=== PATIENT | female | born 1945 | race Caucasian/White ===

== ENCOUNTER 2020-05-12 07:44 | Outpatient (CLI) | payer MEDICARE, MEDICAID, SELFPAY ==
--- NOTE | ~2020-05-12 | DEXA_ITS ---
Bone Density Report Name: Sandy Mendez Age: 74 Sex: Female Ethnicity: White Date of : 1945 Indication: osteopenia; height loss; postmenopausal Referring Provider: Kathy Rogers Study: Bone densitometry was performed. Exam Date: May 12, 2020 Accession number: [id number] Bone Density: Region BMD T-score Z-score Classification AP Spine (L1-L4) 1.097 0.5 2.9 Normal Femoral Neck (Left) 0.613 -2.1 0.0 Osteopenia Total Hip (Left) 0.741 -1.6 0.2 Osteopenia Total Hip Bilateral Avg 0.776 -1.4 0.5 Osteopenia Femoral Neck (Right) 0.604 -2.2 -0.1 Osteopenia Total Hip (Right) 0.811 -1.1 0.8 Osteopenia World Health Organization criteria for BMD impression classify patients as: Normal (T-score at or above -1.0), Osteopenia (T-score between -1.0 and -2.5), or Osteoporosis (T-score at or below -2.5). 10-year Fracture Risk(1): Major Osteoporotic Fracture 13% Hip Fracture 3.3% Reported Risk Factors: [place] (), Neck BMD=0.604, BMI=43.3 (1) FRAX(R) Version 3.08. Fracture probability calculated for an untreated patient. Fracture probability may be lower if the patient has received treatment. Previous Exams: Region Exam Age BMD T-score BMD Change BMD Change Date g/cm2 vs Baseline vs Previous AP Spine(L1-L4) 05/12/2020 74 1.097 0.5 0.140(14.7%)# 0.020(1.8%) 08/24/2016 70 1.078 0.3 0.121(12.6%)# 0.121(12.6%)# 01/12/2009 63 0.957 -0.8 Total Hip(Left) 05/12/2020 74 0.741 -1.6 -0.059(-7.3%)# 0.060(8.9%)* 08/24/2016 70 0.681 -2.1 -0.119(-14.9%) -0.119(-14.9%) 01/12/2009 63 0.800 -1.2 Total Hip(Right) 05/12/2020 74 0.811 -1.1 0.027(3.4%)# 0.049(6.5%)* 08/24/2016 70 0.762 -1.5 -0.022(-2.9%)# -0.022(-2.9%)# 01/12/2009 63 0.784 -1.3 *Denotes significance at 95% confidence level, LSC for AP Spine = 0.022 g/cm2, LSC for Total Hip = 0.027 g/cm2 Clinical Information Provided by Patient: Has used the following medications: Fosamax (i.e. alendronate), Vitamin D, Calcium Patient maximum height was 62.5 Menopause Age: 3 Drinks caffeinated beverages Onset of menses at age 10 Number of children 5 Impression: The patient has low bone mass, based on the Right Femoral Neck T-score. The patient has an estimated ten-year risk of hip fracture of 3.3% and an estimated ten-year risk of major fracture of 13%, based on the WHO FRAX algorithm. No significant bone loss was observed. Varsha
== END 2020-05-12 07:45 | disposition home or self-care (01) ==
PROVIDERS: PCP Family Medicine; Visit Provider Family Medicine
DX: M81.0 Age-related osteoporosis without current pathological fracture (principal); M85.852 Other specified disorders of bone density and structure, left thigh; M85.851 Other specified disorders of bone density and structure, right thigh
CPT/HCPCS: 77080

== ENCOUNTER 2020-06-13 00:41 | Outpatient (CLI) | payer MEDICARE, MEDICAID, SELFPAY ==
[2020-06-13 19:29] LABS: SARS-CoV-2 RNA PCR Negative
== END 2020-06-13 00:42 | disposition home or self-care (01) ==
LOC: ANHCOVIDDT 00:41
PROVIDERS: PCP Family Medicine; Visit Provider Internal Medicine Gastroenterology
DX: Z01.812 Encounter for preprocedural laboratory examination (principal); Z20.828 Contact with and (suspected) exposure to other viral communicable diseases
CPT/HCPCS: 87635; C9803; U0003

== ENCOUNTER 2020-06-16 00:58 | Day surgery (SDC) | payer MEDICARE, MEDICAID, SELFPAY ==
[2020-06-04 13:32] VITALS: BMI 40.7
[2020-06-16 09:56] VITALS: BP 177/86; PULSE 80; RESP 18; TEMP 37; O2SAT 98
[2020-06-16] MEDS: LACTATED RINGERS 1,000 ML 150 ML IV CONT (10:07)
--- NOTE | 2020-06-16 10:31 | P.PNAN_ITS ---
Anes - Initial Pre Proc Eval Procedure: Operation Date: 06/16/20 11:15 Proposed Procedures p Screening Colonoscopy - Richard Cuba MD Date/Time: 06/16/20 10:31 Surgeon: Richard Cuba MD Pre Op Diagnosis: Neoplasm Screening Patient Data Age: 74 Gender: F Height: 5 ft 2 in Weight: 98.3 kg Last Vital Signs Temp 98.6 F 06/16/20 09:56 Pulse 80 06/16/20 09:56 Resp 18 06/16/20 09:56 BP 177/86 H 06/16/20 09:56 Pulse Ox 98 06/16/20 09:56 Allergies Allergy/AdvReac Type Severity Reaction Status Date / Time No Known Allergies Allergy Verified 06/16/20 09:53 Home Medications Medication Instructions Recorded Confirmed Type alendronate 70 mg tablet 70 mg PO WEEKLY #13 tablet 11/19/19 06/04/20 Rx atorvastatin 20 mg tablet 20 mg PO DAILY #90 tablet 11/19/19 06/04/20 Rx lisinopril 20 mg tablet 20 mg PO DAILY #90 tablet 11/19/19 06/16/20 Rx calcium carbonate 600 mg calcium 600 mg PO DAILY 04/07/20 06/04/20 History (1,500 mg) tablet omega-3 fatty acids 500 mg capsule 500 mg PO DAILY 04/07/20 06/04/20 History levothyroxine 50 mcg PO DAILY 06/04/20 06/16/20 History indapamide 2.5 mg tablet 2.5 mg PO QAM #90 tablet 06/10/20 Rx Patient hx anesthesia problems: none Family hx anesthesia problems: none [facility] Social History Social History Smoking status: Never smoker Second hand tobacco smoke exposure: No Additional smoking assessment comments: smoke around pt in the past-30-40 years ago Alcohol intake: current Substance use: never Substance use type: does not use Gender identity (if verbalized by the patient): Female Anes - Eval Final PreProcedure Day of Procedure 06/16/20 10:31 Patient weight: morbidly obese Heart: regular rate and rhythm Lungs: clear to auscultation Airway: Mallampati scale class III Neurological: alert and oriented Last oral intake: >/= 8 hours ASA classification: III Emergent: no Anesthetic plan: proceed Anesthesia type and monitoring: general GIVS and standard monitoring Informed Consent: The patient's anesthetic plan and its attendant risks and benefits were discussed with the patient/family/POA. Questions were solicited and answers provided to the satisfaction of the patient/family/POA.
--- NOTE | 2020-06-16 10:44 | PM.HPGS ---
History of Present Illness History of Present Illness Consent: Risks, benefits, and alternatives have been discussed and questions answered. Patient agrees to proceed with procedure. Chief complaint: Neoplasm Screening Narrative: Sandy Mendez is a 74 year old female here for screening colonoscopy, last one 10 years ago Review of Systems Constitutional: Constitutional: Denies headache(s) and Denies weakness Eyes: Eyes: Denies blurry vision ENT: Reports Normal hearing present, Denies headache(s) and Denies neck pain Cardiovascular: Cardiovascular: Denies chest pain and Denies dyspnea Respiratory: Respiratory: Denies dyspnea Gastrointestinal: Gastrointestinal: Reports no additional gastrointestinal complaints Genitourinary: Genitourinary: Denies dysuria Musculoskeletal: Musculoskeletal: Denies neck pain Integumentary/Breasts: Skin/Breast: Denies dry skin Neurologic: Reports Normal hearing present, Denies headache(s) and Denies weakness Psychiatric: Psychiatric: Denies anxiety Endocrine: Endocrine: Denies change in body appearance Hematologic/Lymphatic: Hematologic/Lymphatic: Denies easy bleeding Allergic/Immunologic: Allergic/Immunologic: Denies urticaria PMFSH Social History Social History Smoking status: Never smoker Second hand tobacco smoke exposure: No Additional smoking assessment comments: smoke around pt in the past-30-40 years ago Alcohol intake: current Substance use: never Substance use type: does not use Gender identity (if verbalized by the patient): Female Meds Home Medications and Allergies Home Medications Medication Instructions Recorded Confirmed Type alendronate 70 mg tablet 70 mg PO WEEKLY #13 tablet 11/19/19 06/04/20 Rx atorvastatin 20 mg tablet 20 mg PO DAILY #90 tablet 11/19/19 06/04/20 Rx lisinopril 20 mg tablet 20 mg PO DAILY #90 tablet 11/19/19 06/16/20 Rx calcium carbonate 600 mg calcium 600 mg PO DAILY 04/07/20 06/04/20 History (1,500 mg) tablet omega-3 fatty acids 500 mg capsule 500 mg PO DAILY 04/07/20 06/04/20 History levothyroxine 50 mcg PO DAILY 06/04/20 06/16/20 History indapamide 2.5 mg tablet 2.5 mg PO QAM #90 tablet 06/10/20 Rx Allergies Allergy/AdvReac Type Severity Reaction Status Date / Time No Known Allergies Allergy Verified 06/16/20 09:53 Vital Signs Vital Signs - 24 hr 06/16/20 09:56 Temperature 98.6 F Pulse Rate 80 Respiratory Rate 18 Blood Pressure 177/86 H Pulse Oximetry 98 Exam Const: General: comfortable and no acute distress HENMT: General nose exam: Normal nares present Eyes: General: appearance normal, both eyes and all related structures Neck: Neck: no JVD Resp: Auscultation: clear to auscultation bilaterally Cardio: Rate: regular rate Rhythm: regular rhythm GI: Inspection: non-distended GI Palp: Yes Soft to palpation Skin: General skin exam: normal color Neuro: General: gait normal Speech: normal speech Extrem: General: normal to inspection Psych: Mental Status: mental status grossly normal Assessment and Plan Assessment and plan (1) Colon cancer screening: Code(s): Z12.11 - Encounter for screening for malignant neoplasm of colon Status: Acute Assessment and Plan: will proceed with colonoscopy (2) Hypertension: Code(s): I10 - Essential (primary) hypertension Status: Acute
[2020-06-16 11:15] VITALS: BP 91/48; PULSE 75; RESP 20; O2SAT 98
[2020-06-16 11:25] VITALS: BP 91/48; PULSE 70; RESP 17; O2SAT 98
[2020-06-16 11:35] VITALS: BP 116/66; PULSE 80; RESP 20; O2SAT 100
== END 2020-06-16 11:41 | disposition home or self-care (01) ==
PROVIDERS: PCP Family Medicine; Visit Provider Internal Medicine Gastroenterology
PROC: 0DJD8ZZ Inspection of Lower Intestinal Tract, Via Natural or Artificial Opening Endoscopic (ICD-10-PCS; CPT 45378; principal; 2020-06-16 11:15)
DX: Z12.11 Encounter for screening for malignant neoplasm of colon (principal); I10 Essential (primary) hypertension; D12.2 Benign neoplasm of ascending colon; D12.5 Benign neoplasm of sigmoid colon; K62.1 Rectal polyp; K57.30 Diverticulosis of large intestine without perforation or abscess without bleeding
CPT/HCPCS: 45385; 88305; J2704; J7120

== ENCOUNTER 2020-11-04 08:34 | Outpatient (CLI) | payer MEDICARE, MEDICAID, SELFPAY ==
--- NOTE | ~2020-11-04 | MM_ITS ---
EXAMINATION: MM screening dominick BI w fabiola HISTORY: Screening TECHNIQUE: Craniocaudal and mediolateral oblique 3-D tomosynthesis images were obtained and synthetic 2-D images were generated. CAD analysis was submitted and interpreted. COMPARISON: Comparison to multiple prior studies sequentially, with oldest reviewed study dated 11/11. BREAST PARENCHYMAL COMPOSITION: There are scattered areas of fibroglandular density. FINDINGS: Left breast asymmetries are stable. There is no evidence of suspicious mass, calcification, or architectural distortion to suggest malignancy in either breast. There has been no suspicious int erval change. IMPRESSION: 1. No mammographic evidence of malignancy. 2. Recommend routine screening mammography in one year. BI-RADS Category 1: Negative Reviewed, dictated and finalized at location A. [employer]
== END 2020-11-04 08:35 | disposition home or self-care (01) ==
LOC: ANHIMG 08:38
PROVIDERS: PCP Family Medicine; Visit Provider Obstetrics & Gynecology
DX: Z12.31 Encounter for screening mammogram for malignant neoplasm of breast (principal)
CPT/HCPCS: 77063; 77067

== ENCOUNTER 2021-11-11 15:01 | Outpatient (CLI) | payer MEDICARE, MEDICAID, SELFPAY ==
--- NOTE | ~2021-11-11 | MM_ITS ---
EXAMINATION: MM screening dominick BI w fabiola HISTORY: Screening TECHNIQUE: Craniocaudal and mediolateral oblique 3-D tomosynthesis images were obtained and synthetic 2-D images were generated. CAD analysis was submitted and interpreted. COMPARISON: Comparison to multiple prior studies sequentially, with oldest reviewed study dated 01/05. BREAST PARENCHYMAL COMPOSITION: The breasts are almost entirely fatty. FINDINGS: There is no evidence of suspicious mass, calcification, or architectural distortion to sugg est malignancy in either breast. There has been no suspicious interval change. IMPRESSION: 1. No mammographic evidence of malignancy. 2. Recommend routine screening mammography in one year. BI-RADS Category 1: Negative Reviewed, dictated and finalized at location A. [employer]
== END 2021-11-11 15:02 | disposition home or self-care (01) ==
LOC: ANHIMG 15:07
PROVIDERS: PCP Family Medicine; Visit Provider Obstetrics & Gynecology
DX: Z12.31 Encounter for screening mammogram for malignant neoplasm of breast (principal)
CPT/HCPCS: 77063; 77067

== ENCOUNTER 2022-04-29 08:39 | Outpatient (CLI) | payer MEDICARE, MEDICAID, SELFPAY ==
--- NOTE | 2022-04-29 09:03 | ECG_ITS ---
Measurements Intervals [place] Rate: 49 P: 18 NH: 194 QRS: 22 QRSD: 88 T: 46 QT: 407 QTc: 368 Interpretive Statements SINUS BRADYCARDIA ABNORMAL ECG Electronically Signed On 04-29-2022 15:27:42 CDT by Pasquale Barraza D.O.
== END 2022-04-29 08:40 | disposition home or self-care (01) ==
LOC: ANHCARD 08:41
PROVIDERS: PCP Family Medicine; Visit Provider Family Medicine
DX: E78.00 Pure hypercholesterolemia, unspecified (principal); I10 Essential (primary) hypertension; R94.31 Abnormal electrocardiogram [ECG] [EKG]
CPT/HCPCS: 93005

== ENCOUNTER 2023-02-03 09:31 | Outpatient (CLI) | payer MEDICARE, MEDICAID, SELFPAY ==
--- NOTE | ~2023-02-03 | XR_ITS ---
XR hip RT min 2V 02/03/2023 09:53 Indication: Right hip pain Procedure: 2 views right hip Comparison: No prior studies for comparison. Findings: No fracture, subluxation or dislocation. No significant soft tissue abnormality. No foreign bodies. There is anatomic alignment. Impression: 1: No significant bone or joint abnormality. Reviewed, dictated and finalized at location B. Impression: 1: No significant bone or joint abnormality.
== END 2023-02-03 09:32 | disposition home or self-care (01) ==
PROVIDERS: PCP Family Medicine; Visit Provider Physician Assistant
DX: M25.551 Pain in right hip (principal)
CPT/HCPCS: 73502

== ENCOUNTER 2023-10-24 09:28 | Outpatient (CLI) | payer MEDICARE, MEDICAID, SELFPAY ==
--- NOTE | ~2023-10-24 | XR_ITS ---
AP and lateral views of the left hip Clinical history: Pain Findings: No acute fracture or dislocation is seen. Osseous alignment is anatomic. Left hip joint is preserved. Soft tissues are unremarkable. Impression: No significant abnormality is seen. Reviewed, dictated and finalized at location M. ROPOLOGIST PHYSICAL Impression: No significant abnormality is seen.
== END 2023-10-24 09:29 | disposition home or self-care (01) ==
PROVIDERS: PCP Family Medicine; Visit Provider Physician Assistant
DX: M25.552 Pain in left hip (principal)
CPT/HCPCS: 73502

== ENCOUNTER 2023-12-13 13:19 | Outpatient (CLI) | payer MEDICARE, MEDICAID, SELFPAY ==
--- NOTE | ~2023-12-13 | XR_ITS ---
EXAMINATION: XR lg joint inject/asp w image DATE: 12/13/2023 14:11 INDICATION: Left hip arthritis with pain TECHNIQUE: A time-out was performed to verify the patient's name, date of , and procedure to b e performed. The procedure including the risks, benefits, and alternatives was discussed with the pat ient. Risks discussed included bleeding and infection. The patient understood the risks and agreed to proceed. The skin overlying the left hip joint was prepped and draped in usual sterile fashion. An esthetic was administered with 1% lidocaine subcutaneously. A 22 G needle was advanced under fluoros copic guidance into the joint. Injection of 1 mL of Omnipaque 240 confirmed intra-articular position of the needle. Subsequently, injectate consisting of 3 mL of a 2:1 mixture of 0.5% Marcaine: 80 mg/ mL Depo-Medrol for a total dosage of 80 mg Depo-Medrol was instilled. Washout of contrast was seen co nfirming intra-articular administration. The needle was removed and the entry site was cleaned and dr essed. There were no immediate complications. Fluoroscopy exposure time was 0.1 minutes. The total n umber of images was 2. Total DAP was 0.405 Gycm^2 FINDINGS: Real-time fluoroscopy demonstrates the needle in the left hip joint. Patient's pain prior t o procedure:03/01. Patient's pain following the procedure: . IMPRESSION: 1. Successful left hip joint injection of local anesthetic and steroid with decrease in the patient's presenting pain. Reviewed, dictated and finalized at location A. 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 Successful left hip joint injection of local anesthetic and steroid with dec rease in the patient's presenting pain.
== END 2023-12-13 13:20 | disposition home or self-care (01) ==
LOC: ANHIMG 13:22
PROVIDERS: PCP Family Medicine; Visit Provider Orthopaedic Surgery
DX: M16.12 Unilateral primary osteoarthritis, left hip (principal)
CPT/HCPCS: 20610; 77002; J1040; Q9966

== ENCOUNTER 2024-01-08 08:00 | Outpatient (RCR) | payer MEDICARE, MEDICAID, SELFPAY ==
--- NOTE | 2023-12-07 11:24 | PCPTNOTE ---
Patient did not show up for scheduled initial evaluation this date.
--- NOTE | 2023-12-08 14:12 | OPREHPOC ---
Outpatient Therapy Plan of Care This is a Multidisciplinary Plan of Care that may contain components documented by all disciplines (PT, OT, and ST.) PT Problem 1 PT Problem #1 Knowledge Deficit PT Goal 1 Goal Pt demonstrates independence with HEP Target Visit 10 PT Problem 2 PT Problem #2 Impaired Range of Motion PT Goal 1 Goal Pt demonstrates passive hip flexion to 110 to effectively garden Target Visit 10 PT Problem 3 PT Problem #3 Impaired Strength PT Goal 1 Goal Pt to improve 5 [id number] from 40s to 20s Target Visit 10 PT Goal 2 Goal Pt to improve L knee strength equal to R knee strength Target Visit 10 PT Problem 4 PT Problem #4 Impaired Gait PT Goal 1 Goal Pt to improve L hip extension to 0 deg to improve stride length Target Visit 10 PT Goal 2 Goal Pt to improve 2min walk distance from 300ft to 375ft Target Visit 10 PT Problem 5 PT Problem #5 Pain PT Goal 1 Goal 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
--- NOTE | 2023-12-08 14:12 | PTOPEVAL1 ---
Assessment and note entered by Guy Diaz, PT, DPT Evaluation Information Assessment Status Evaluation Subjective Information Pt presents to PT today with L hip pain lasting about 3 years. Was taking medication for 7 years but recently stopped taking it. Pt reports pain on the L side of leg, has to change positions every 30 minutes and often sleeps in a chair. 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 Pt bends over to pick things up instead of bending at her knees, and states that she looses balance and ROM after sitting for 30 minutes. When shopping Pt has to hold onto grocery cart and walk slowly. She reports being an active individual and is frustrated by her lack of mobility and pain restrictions. Reported Pain Level Pain Score 0: Self Report Assessment PT Clinical Summary Sandy presents to PT today with a diagnosis of L hip OA. Pt reports pain in her L hip that limits her mobility. Pt demonstrates ROM in her L hip that is significantly decreased compared to her R, showing capsular and soft tissue limitations as well as significant muscular weakness in her L quad and hamstring. She ambulates with a decreased gait speed and multiple compensations. Skilled therapy services are indicated to address the deficits noted above, to manage pain, and to improve functional mobility. Plan of Care Interventions Electrical Stimulation,Gait Training,Hot Pack/Cold Pack,Manual Therapy,Neuro Re-education,Patient/ Caregiver Educati,Therapeutic Activities, Therapeutic Exercise PT Services Indicated Yes Treatment Frequency and 2x/wk for 10 visits Duration These treatments will address the objective and functional deficits as defined above. The patient will be advanced safely and appropriately in order for the patient to progress towards his/her prior level of function. Additional exercises will be introduced and as well as a comprehensive home exercise program upon discharge, if needed, ?to ensure carryover of functional gains achieved in the clinic. This treatment plan has been reviewed and agreement upon by the patient.
--- NOTE | 2023-12-20 16:13 | PCPTNOTE ---
Patient called to cancel for 12/21/23 due to having to work.
--- NOTE | 2024-01-15 08:27 | PTOPDC ---
Assessment and note entered by Guy Diaz, PT, DPT Evaluation Information Assessment Status Discharge - Pt Not Present Diagnosis L hip OA Subjective Information Pt did not show up for last scheduled appointment this date. Called and spoke with pt to follow up. She states she feels good with her exercises and states she is going to need a hip replacement either way. She states she has a lot going on an therapy is too much to commit to right now. Assessment PT Clinical Summary Iker completed 8 visits of skilled therapy from 12/08/23 to 01/08/24. She will be discharged at this time per her request.
== END 2024-01-15 09:41 | disposition home or self-care (01) ==
LOC: ANHGOSHPT 08:00
PROVIDERS: PCP Family Medicine; Visit Provider Orthopaedic Surgery
DX: M16.0 Bilateral primary osteoarthritis of hip (principal)
CPT/HCPCS: 97110; 97116; 97140; 97161; 97530; 99199

== ENCOUNTER 2024-05-13 11:55 | Outpatient (CLI) | payer MEDICARE, MEDICAID, SELFPAY ==
--- NOTE | 2024-05-13 12:26 | ECG_ITS ---
Test Date: 2024-05-13 12:33:36 Measurements Intervals [place] Rate: 62 P: 26 UT: 193 QRS: 29 QRSD: 87 T: 39 QT: 388 QTc: 396 Interpretive Statements SINUS RHYTHM LOW QRS VOLTAGE IN PRECORDIAL LEADS BASELINE ARTIFACT- II, III, AVR, AVL, AVF BORDERLINE ECG No previous ECG available for comparison Electronically Signed On 05-13-2024 13:18:24 CDT by Pasquale Barraza D.O.
[2024-05-13 12:32] LABS: Basophils Absolute Auto 0.1 K/mm3 (0.0-0.1); Basophils Percent Auto 0.7 % (0.2-1.2); Eosinophils Absolute Auto 0.2 K/mm3 (0-0.3); Eosinophils Percent Auto 2.7 % (0-4.4); Hemoglobin 12.8 g/dL (12.0-15.0); Immature Granulocyte Absolute 0.03 K/mm3 (0.00-0.031); Immature Granulocyte Percent A 0.4 % (0-0.5); Lymphocytes Absolute Auto 2.12 K/mm3 (0.9-3.2); Mean Corpuscular HGB Conc 32.8 g/dl (32-36); Mean Corpuscular Hemoglobin 30.3 pg (26-34); Mean Corpuscular Volume 92.2 fl (80-100); Mean Platelet Volume 9.8 fl (7.4-10.4); Monocytes Absolute Auto 0.6 K/mm3 (0.1-0.6); Monocytes Percent Auto 8.8 % (2.6-8.5); Neutrophils Absolute Auto 4.1 K/mm3 (1.3-6.7); Neutrophils Percent Auto 57.4 % (45.5-73.1); Platelet Count Result 237 k/mm3 (150-375); Red Blood Count 4.23 M/mm3 (4.2-5.4); Red Cell Distribution Width 12.7 % (11.5-14.5); White Blood Count 7.1 K/mm3 (4.5-10.0)
[2024-05-13 12:45] LABS: Appearance Urine Clear (Clear); Bacteria Urine None Seen /hpf; Bilirubin Urine Negative (Negative); Blood Urine Negative (Negative); Color Urine Yellow (Yellow); Glucose Urine UA Negative (Negative); Hyaline Casts Urine Present /lpf; Ketones Urine Trace mg/dL (Negative); Leukocyte Esterase Ur 2+ LEU/UL (Negative); Need Manual Microscopic Reviewed; Nitrate Urine Negative (Negative); Protein Urine Negative (Negative); RBC Urine 0-2 /hpf (0-2); Specific Grav Ur 1.021 (1.001-1.035); Squamous Epithelial Cell Urine Few /hpf (Few); Urobilinogen Urine 0.2 mg/dL (<2.0); WBC Urine 21-50 /hpf (0-3); pH Urine 5.5 (5.0-9.0)
[2024-05-13 12:49] LABS: Anion Gap 13 mmol/L (4-12); Blood Urea Nitrogen 11 mg/dL (7-17); Calcium 9.6 mg/dL (8.4-10.2); Carbon Dioxide 23 mmol/L (22-30); Chloride 100 mmol/L (98-107); Estimated Glomerular Filt Rate 60; Glucose 101 mg/dL (65-110); Potassium 4.2 mmol/L (3.4-5.0); Sodium 136 mmol/L (137-145)
[2024-05-13 12:49] LABS: Add Urine Microscopic? YES
== END 2024-05-13 11:56 | disposition home or self-care (01) ==
PROVIDERS: PCP Family Medicine; Visit Provider Orthopaedic Surgery
DX: R53.83 Other fatigue (principal); I10 Essential (primary) hypertension; E03.9 Hypothyroidism, unspecified; E78.00 Pure hypercholesterolemia, unspecified
CPT/HCPCS: 36415; 80048; 81001; 85025; 87081; 87086; 87088; 93005

== ENCOUNTER 2024-05-16 09:40 | Outpatient (CLI) | payer MEDICARE, MEDICAID, SELFPAY ==
--- NOTE | ~2024-05-16 | DEXA_ITS ---
Bone Density Report Name: MANDO DEUTSCH Age: 78 Sex: Female Ethnicity: White Date of : 1945 Indication: osteopenia; height loss; Referring Provider: BRONSON, PRANEETH Vilalgran Study: Bone densitometry was performed. Exam Date: May 16, 2024 Accession number: [id number] Bone Density: Region BMD T-score Z-score Classification AP Spine(L1-L4) 1.207 1.5 4.2 Normal Femoral Neck (Left) 0.682 -1.5 0.8 Osteopenia Total Hip (Left) 0.748 -1.6 0.5 Osteopenia Femoral Neck (Right) 0.592 -2.3 0.0 Osteopenia Total Hip (Right) 0.773 -1.4 0.7 Osteopenia Total Hip Mean 0.761 -1.5 0.6 Osteopenia World Health Organization criteria for BMD impression classify patients as: Normal (T-score at or above -1.0), Osteopenia (T-score between -1.0 and -2.5), or Osteoporosis (T-score at or below -2.5). 10-year Fracture Risk(1): Major Osteoporotic Fracture 15% Hip Fracture 4.5% Reported Risk Factors: [place] (), Neck BMD=0.592, BMI=40.6 (1) FRAX(R) Version 3.08. Fracture probability calculated for an untreated patient. Fracture probability may be lower if the patient has received treatment. Previous Exams: Region Exam Age BMD T-score BMD Change BMD Change Date g/cm2 vs Baseline vs Previous AP Spine (L1-L4) 05/16/2024 78 1.207 1.5 0.129 (12.0%)* 0.109 (10.0%)* 05/12/2020 74 1.097 0.5 0.020 (1.8%) 0.020 (1.8%) 08/24/2016 70 1.078 0.3 Total Hip(Left) 05/16/2024 78 0.748 -1.6 0.068 (9.9%)* 0.007 (1.0%) 05/12/2020 74 0.741 -1.6 0.060 (8.9%)* 0.060 (8.9%)* 08/24/2016 70 0.681 -2.1 Total Hip(Right) 05/16/2024 78 0.773 -1.4 0.011 (1.4%) -0.038 (-4.7%) 05/12/2020 74 0.811 -1.1 0.049 (6.5%)* 0.049 (6.5%)* 08/24/2016 70 0.762 -1.5 *Denotes significance at 95% confidence level, LSC for AP Spine = 0.022 g/cm2, LSC for Total Hip = 0.027 g/cm2 Clinical Information Provided by Patient: Has used the following medications: Vitamin D, Calcium Patient maximum height was 62 Menopause Age: 51 No regular weight bearing exercise Drinks caffeinated beverages Onset of menses at age 10 Number of children 5 Impression: The patient has low bone mass, based on the Right Femoral Neck T-score. The patient has an estimated ten-year risk of hip fracture of 4.5% and an estimated ten-year risk of major fracture of 15%, based on the WHO FRAX algorithm. The BMD for the Total Hip(Right) decreased,
== END 2024-05-16 09:41 | disposition home or self-care (01) ==
LOC: ANHIMG 09:42
PROVIDERS: PCP Family Medicine; Visit Provider Physician Assistant
DX: Z78.0 Asymptomatic menopausal state (principal); M85.89 Other specified disorders of bone density and structure, multiple sites
CPT/HCPCS: 77080

== ENCOUNTER 2024-05-30 13:54 | Outpatient (CLI) | payer MEDICARE, MEDICAID, SELFPAY ==
[2024-05-30 15:20] LABS: Add Urine Microscopic? YES; Appearance Urine Clear (Clear); Bacteria Urine None Seen /hpf; Bilirubin Urine Negative (Negative); Blood Urine Negative (Negative); Color Urine Yellow (Yellow); Glucose Urine UA Negative (Negative); Ketones Urine Negative (Negative); Leukocyte Esterase Ur 3+ LEU/UL (Negative); Nitrate Urine Negative (Negative); Non Pathogenic Casts 0-2; Protein Urine Negative (Negative); RBC Urine 0-2 /hpf (0-2); Specific Grav Ur 1.013 (1.001-1.035); Squamous Epithelial Cell Urine None Seen /hpf (Few); Urobilinogen Urine 0.2 mg/dL (<2.0); pH Urine 5.5 (5.0-9.0)
[2024-05-30 15:24] LABS: Urine Cotinine NEGATIVE
[2024-05-30 15:25] LABS: Prothrombin Time 13.3 Seconds (11.1-14.7)
[2024-05-30 16:00] LABS: Hemoglobin A1C 5.5 % (<5.7)
[2024-05-30 16:22] LABS: MRSA (PCR) DETECTED (NOT DETECTE)
== END 2024-05-30 13:55 | disposition home or self-care (01) ==
LOC: ANHSURGERY 13:57
PROVIDERS: PCP Family Medicine; Visit Provider Orthopaedic Surgery
DX: M16.12 Unilateral primary osteoarthritis, left hip (principal); Z01.818 Encounter for other preprocedural examination
CPT/HCPCS: 80307; 81001; 83036; 85610; 85730; 86850; 86900; 86901; 87077; 87086; 87088; 87641

== ENCOUNTER 2024-06-11 11:55 | Day surgery (SDC) | payer MEDICARE, MEDICAID, SELFPAY ==
[2024-05-30 14:01] VITALS: BMI 38.5
[2024-05-30 14:12] VITALS: BP 142/70; PULSE 58; RESP 16; TEMP 36.4; O2SAT 98
--- NOTE | 2024-05-30 14:27 | PC.NURSE ---
Report to the Outpatient Waiting Room, entrance under the green pavilion located off [facility], at time __6:00AM on date ___06/11/24____. Planned Procedure Time: ___7:30AM . Time changes happen often and if your time is changed the preop area will call you the afternoon before. - You and your visitor will be asked to self-screen and do not enter if you have any COVID symptoms. - A mask is optional within the hospital at this time. Patients may have clear liquids (water, carbonated beverages, clear teas, apple juice) until 3 hours prior to surgery with a maximum of 20 ounces. - No food from midnight until time of surgery. Take the following medications with a SIP of water the morning of surgery: ____LEVOTHYROXINE DO NOT STOP ANY OF YOUR OTHER PRESCRIPTION MEDICATIONS PRIOR TO SURGERY ?EXCEPT THE FOLLOWING Medications to discontinue per physician ____HOLD ALL VITAMINS/SUPPLEMENTS 3 DAYS PRE-OP PER ANESTHESIA Date to take last dose____06/07/24 Please no make-up, nail hungarian, hairspray, perfume, deodorant, or body powder the day of surgery. No jewelry (including any body piercings) or valuables the day of surgery, leave them at home. Please take a shower or bath the night before, or the morning of, surgery with an antibacterial soap. Wear comfortable, loose fitting clothing. - Jewelry must be removed prior to entering the operating room. Rings and piercings that are not removed may be cut off. - The hospital will not accept responsibility for valuables. - Please leave all valuables, including medications, at home the day of surgery. If you are going home after surgery, a licensed otr tanker truck driver must drive you home. - NO public transportation without another adult if you receive anesthesia. - We recommend that an adult stay with you for 24 hours following discharge. - We also recommend that you do not drive, make important decision, drink alcoholic beverages, or take any drugs that were not prescribed by your health care provider for at least 24 hours after your discharge time. Follow any additional instructions given to you from your surgeon. If you or anyone in your household have experienced Covid symptoms in the past week, please notify your surgeon or the nurse liaison at the phone number below for possible testing. Telephone instructions given to ____PATIENT and asked if any additional questions and then verbalized understanding. Patient advised to call surgeon office or pre surgery nurse liaison [phone] if any additional questions.
[2024-06-11] VITALS (17 sets, daily range): BP systolic 92–149; BP diastolic 47–92; PULSE 49–86; RESP 10–20; TEMP 36.1–36.8; O2SAT 94–100
--- NOTE | ~2024-06-11 | XR_ITS ---
SINGLE VIEW LEFT HIP Ordering provider: Cuong Sampson MD History: . POST-OP, LEFT JOSH . Comparison: May 13, 2024 FINDINGS: BONES: No acute fracture or dislocation is seen on this limited single view. JOINT SPACES: Left hip arthroplasty. SOFT TISSUES: Normal. IMPRESSION: No acute osseous abnormality left hip. Left hip arthroplasty. Reviewed, dictated and finalized at location A.
[2024-06-11] MEDS: LACTATED RINGERS 1,000 ML 30 ML IV CONT (06:30)
[2024-06-11] MEDS: ACETAMINOPHEN 500 MG TABLET 1000 MG PO (06:35)
[2024-06-11] MEDS: TRANEXAMIC ACID 1,000MG/ISO100 1,000 MG/100 ML BAG 200 MG IVPB (06:37)
--- NOTE | 2024-06-11 07:13 | WPDANESEPPF ---
Anes - Initial Pre Proc Eval Procedure: Operation Date: 06/11/24 07:30 Proposed Procedures p Left Total Hip Arthroplasty - Cuong Sampson MD Date/Time: 06/11/24 07:13 Surgeon: Cuong Sampson MD Pre Op Diagnosis: Lt Hip DJD Patient Data Age: 78 Gender: F Height: 1.54 m Weight: 91.4 kg Last Vital Signs Temp 97.1 F L 06/11/24 06:14 Pulse 66 06/11/24 06:14 Resp 18 06/11/24 06:14 BP 149/66 H 06/11/24 06:14 Pulse Ox 98 06/11/24 06:14 O2 Del Method Room Air 06/11/24 06:14 Allergies Allergy/AdvReac Type Severity Reaction Status Date / Time No Known Allergies Allergy Verified 06/11/24 06:12 Home Medications Medication Instructions Recorded Confirmed Type atorvastatin 20 mg tablet 20 mg PO DAILY #90 tabs 01/12/24 06/11/24 Rx indapamide 2.5 mg tablet See Rx Instructions .Route 01/12/24 06/11/24 Rx .COMPLEX #90 tabs levothyroxine 50 mcg tablet 50 mcg PO DAILY #90 tabs 01/12/24 06/11/24 Rx lisinopril 20 mg tablet 20 mg PO DAILY #90 tabs 01/12/24 06/11/24 Rx acetaminophen 500 mg tablet 1,500 mg PO BID PRN Pain 05/30/24 05/30/24 History (Acetaminophen Extra Strength) calcium carb-ergocalciferol (vit 1 tablet PO HS 05/30/24 06/11/24 History D2) 600 mg calcium-200 unit tablet Patient hx anesthesia problems: none Family hx anesthesia problems: none Results Review: All pre-operative results and documents have been reviewed as part of the pre-operative evaluation. [facility] Past Medical History Medical History Colon cancer screening Hypercholesterolemia Hypertension Hypothyroidism Osteoporosis Surgical History Surgical History History of appendectomy 1971 History of cataract surgery 2018 History of detached retina repair right -2017 History of tubal ligation 1971 Hx of tonsillectomy age 27 Family History Family History Father Family history of lung cancer Mother Family history of malignant neoplasm of ovary Mother Hypertension Family history of malignant neoplasm of ovary Sibling Hypertension Family history of diabetes mellitus in first degree relative Family history of malignant melanoma Father Family history of lung cancer Other Diabetes mellitus Social History Social History Smoking status: Never smoker Second hand tobacco smoke exposure: No Additional smoking assessment comments: smoke around pt in the past-30-40 years ago Alcohol intake: current Alcohol use details: consumes about 1 glass of wine yearly Substance use: never Substance use type: does not use Lack of Transportation: No Lack of Food: Never True Current Housing: I Have Housing Concerned About Future Housing: No Difficulty Paying Gas/Electric Bills: No Difficulty Paying for Meds: No Education: High School Diploma/GED Difficulty w/ Childcare or Family Care: No Living arrangements: alone Occupation/Education: retired 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 Informed Consent: The patient's anesthetic plan and its attendant risks and benefits were discussed with the patient/family/POA. Questions were solicited and answers provid
--- NOTE | 2024-06-11 07:21 | WPDHPUPDATE1 ---
History and Physical Update Update Date/Time: 06/11/24 07:21 History and Physical has been reviewed, including an updated exam of the patient. There are NO changes in the patient's condition. Risks, benefits, and alternatives have been discussed and questions answered. Patient agrees to proceed with procedure.
[2024-06-11] MEDS: ceFAZolin 2 GM/D5W 50 ML 2 GM/50 ML BAG IVPB ×3 (07:29→22:38)
[2024-06-11] MEDS: SODIUM CHLORIDE 0.9% IV 37.7 ML, MORPHINE SULFATE INJ (*CRX) 2 MG, ROPivacaine HCL 1% 2... INFILTRATE (08:09)
[2024-06-11] MEDS: VANCOMYCIN 1,500 MG/NS 500 ML 1,500 MG/500 ML BAG 250 MG IVPB (08:18)
[2024-06-11] MEDS: TRANEXAMIC ACID 1,000 MG/10 ML AMPUL 1000 MG IV PUSH (09:11)
--- NOTE | 2024-06-11 09:47 | W.PM.PROC2 ---
Procedure Note - Detailed Date of Procedure 06/11/24 Pre-op Diagnosis Lt Hip DJD Post-op Diagnosis Same Procedure Performed L JOSH Surgeon Cuong Sampson MD Anesthesia General Description of Procedure THE PATIENT WAS TAKEN TO THE OPERATING ROOM IN STABLE CONDITION AND WAS PLACED IN THE LATERAL DECUBITUS AND THE LEFT LOWER EXTREMITY WAS PREPPED AND DRAPED IN THE STERILE FASHION. INCISION WAS MADE IN THE POSTERIOR LATERAL SIDE OF THE HIP, DOWN TO THE FASCIA LAYER. THE FASCIA WAS INCISED. THE HIP WAS EXPOSED. THE SHORT EXTERNAL ROTATORS WERE EXPOSED. THE SCIATIC NERVE WAS IDENTIFIED. INCISION WAS MADE THROUGH THE SHORT EXTERNAL ROTATORS AND THE CAPSULE OF THE HIP JOINT. THE HIP WAS DISLOCATED. AN OSTEOTOMY WAS MADE TO THE FEMORAL NECK ABOUT 1 CM PROXIMAL TO THE LESSER TROCHANTER. THE ACETABULUM WAS EXPOSED. THERE WAS SEVERE DJD SEEN. BEGINNING WITH A 44 REAMER THE ACETABULUM WAS REAMED TO 49 MM. A 50 MM TRIAL WAS PLACED IN 35 DEG OF ABDUCTION AND ANTEVERSION WAS IN ALIGNMENT WITH THE TRANS ACETABULAR LIGAMENT. THE FIT WAS EXCELLENT. THE TRIAL WAS REMOVED. A 50 MM BIOMET G7 COMPONENT WAS THEN TAPPED IN TO PLACE IN 35 DEG OF ABDUCTION AND ANTEVERSION IN ALIGNMENT WITH THE TRANSVERSE ACETABULAR LIGAMENT. THE FIT WAS EXCELLENT. THE ACETABULAR LINER WAS PLACED AND CHECKED FOR STABILITY. NEXT THE FEMUR WAS PREPARED WITH INITIAL CANAL FINDER THEN SEQUENTIAL BROACHING WITH A TAPERLOC HIP SYSTEM, UNTIL A 10 BROACH FIT WELL IN 15 OF ANTEVERSION. A -3 STANDARD OFFSET NECK WITH 36 MM HEAD TRIAL WAS PLACED. THE SHUCK TEST WAS EXCELLENT AND THE STABILITY IN FLEXION AND ROTATION WAS EXCELLENT. LEG LENGTHS WERE GROSSLY EQUAL. TRIALS WERE REMOVED. A BIOMET TAPERLOC 10 STEM WAS PLACED WITH A STANDARD OFFSET NECK. THE FIT WAS EXCELLENT IN 15 DEG OF ANTEVERSION. A -3 CERAMIC 36 MM FEMORAL CERAMIC HEAD WAS PLACED. THE HIP WAS TRIALED AND THE STABILITY WAS EXCELLENT WERE THE LEG LENGTHS AND THE SHUCK TEST. THE WOUND WAS IRRIGATED WITH STERILE BETADINE AND WATER FOR 3 MIN. THEN WASHED AGAIN. THE CAPSULE AND THE EXTERNAL ROTATORS WERE APPROXIMATED WITH NUMBER 1 VICRYL. THE FASCIA WITH No 2 QUIL AND THE SUB CUTANEOUS LAYER WITH 2-0 ABSORBABLE SUTURE WITH A RUNNING 3-0 SUBCUTICULAR LAYER WELL. DERMABOND WAS PLACED AND STERILE DRESSING WAS APPLIED. PATIENT WAS PLACED BACK ON TO THE SUPINE POSITION AND WAS EXTUBATED Estimated Blood Loss 250 Complications No immediate complications Condition Stable Disposition PACU
[2024-06-11] MEDS: fentaNYL CITRATE INJ (*CRX) 100 MCG/2 ML VIAL 25 MCG IV PUSH ×8 (10:30→10:58)
[2024-06-11] MEDS: racEPINEPHrine 2.25% NEBU SOLN 0.5 ML VIAL.NEB INHALATION (11:19)
--- NOTE | 2024-06-11 11:27 | SUR.PHASEI ---
1110 pt noted to have stridor MD Johns aware and ordered treatment. Treatment complete at 1128 by RT. Patient lung sounds are clear to auscultation
--- NOTE | 2024-06-11 12:19 | ADMGEN ---
This patient, Sandy Mendez, was admitted to 3 [facility] Surg Room 301-01. Patient/family oriented to hospital policies and general routines including ID bracelet, bed and alarms, visiting hours, pain management, procedures, bathroom and other care routines, personal items, smoking policy, room service/diet, and visiting hours. Information on how to activate the Rapid Response Team has been discussed. Patient/Family are encouraged to report perceived risks to care and to ask questions if they do not understand what they are told or what they should do.
[2024-06-11] MEDS: SENNA/DOCUSATE SODIUM TABLET 2 TAB PO (12:42)
[2024-06-11] MEDS: lisinopriL 20 MG TABLET PO (12:43)
[2024-06-11] MEDS: ATORVASTATIN 20 MG TABLET PO (12:43)
[2024-06-11] MEDS: oxyCODONE/ACETAMINOPHEN (*CRX) 10-325 MG TABLET 1 TAB PO (12:44)
[2024-06-11] MEDS: ASPIRIN 325 MG ENTERIC TABLET PO ×2 (12:44→20:32)
[2024-06-11] MEDS: CELECOXIB 200 MG CAPSULE PO (12:49)
[2024-06-11] MEDS: FAMOTIDINE 20 MG TABLET PO ×2 (12:49→20:32)
[2024-06-11] MEDS: LEVOTHYROXINE SODIUM 50 MCG TABLET PO (12:50)
--- NOTE | 2024-06-11 15:45 | PM.DS ---
DS: Admitting Diagnosis Discharge Date 06/12/2024 Admitting Diagnosis LEFT HIP DJD DS: Discharge Diagnosis Discharge Diagnosis (1) S/P total hip arthroplasty: Code(s): Z96.649 - Presence of unspecified artificial hip joint Status: Acute DS: Summary Hospital Course Reason for hospitalization: LEFT JOSH Hospital Course: PATIENT WAS ADMITTED S/P TOTAL HIP ARTHROPLASTY FOR POSTOPERATIVE MEDICAL MANAGEMENT, PAIN CONTROL AND MOBILIZATION WITH PHYSICAL AND OCCUPATIONAL THERAPY. THE PATIENT PROGRESSED WELL WITH PT/OT. LABS AND VITALS REMAINED STABLE AND PAIN WELL CONTROLLED. THE PATIENT HAS BEEN CLEARED TO BE DISCHARGED HOME. FOLLOW UP APPOINTMENT SCHEDULED. DISCHARGE INSTRUCTIONS DISCUSSED AT LENGTH WITH THE PATIENT. MEDICATIONS REVIEWED. Status at Discharge Cognitive/behavioral status at discharge: STABLE Time Spent with Patient Time attestation: Total time spent providing and/or coordinating discharge services: Discharge Plan Discharge Attending physician on discharge: Cuong Sampson Discharging Clinician: Cuong Sampson Anticipated Discharge Date/Time: 06/12/24 17:20 Patient Disposition: Home Health Service Activity: may shower, no driving and follow weight bearing status Diet: as tolerated Wound Care Instructions: follow printed instructions Discharge Instructions: Post Op Total Hip Replacement Instructions Dr. Cuong Sampson [phone] Your dressing will be changed prior to your discharge. You will be sent home with one additional dressing to be changed on post op day 7 by the home health RN. You may remove the dressing on post op day 14. Your incision was closed with dermabond, allow the dermabond to fall off naturally once your dressing is removed. Do not pull at the dermabond or disrupt incision healing. You may shower with your dressing but do not submerge in a bath tub. Do not drive or operate machinery until you are released by Dr. Sampson. Do not walk without a walker for any reason until you are released by Dr. Sampson. Continue to apply ice to the hip intermittently for additional pain relief. Protect your skin with a towel or pillow case. Continue to follow strict total hip replacement precautions. Your first post op appointment was sent to you via mail preoperatively. If you have any questions or are unable to make your appointment, please contact our office for scheduling questions. Your medications have been sent to your pharmacy. You have been sent home with pain medication. Please crab picker an over the counter stool softener to prevent constipation due to narcotic use. Please keep this in mind during your postoperative recovery. If you are not experiencing regular bowel movements, please contact our office for further instructions. Please contact our office with any questions/concerns regarding your hip at [phone]. CUONG SAMPSON M.D. [facility] [address] [place] [address] POST OPERATIVE DISCHARGE INSTRUCTIONS FOLLOWING TOTAL HIP REPLACEMENT SURGERY Patient Instructions: Antibiotic Form Stand Alone Forms: General Discharge Information Follow-up/Referrals: Cuong Sampson MD [Physician] - Keep Reg. Scheduled Appt. Discharge Medications: New oxycodone-acetaminophen [Percocet] 5-325 mg tablet 1 tablet PO Q6H PRN (Reason: pain) Qty: 30 0RF Continued atorvastatin 20 mg tablet 20 mg PO DAILY Qty: 90 3RF indapamide 2.5 mg tablet See Rx Instructions .ROUTE .COMPLEX Qty: 90 3RF Dose Instruction: TAKE 1 TABLET BY MOUTH ONCE DAILY IN THE MORNING Rx Instructions: TAKE 1 TABLET BY MOUTH ONCE DAILY IN THE MORNING levothyroxine 50 mcg tablet 50 mcg PO DAILY Qty: 90 3RF Patient Comments: QAM lisinopril 20 mg tablet 20 mg PO DAILY Qty: 90 3RF Patient Comments: QAM Calcium + Vitamin D 600 mg calcium- 200 unit Tablet 1 tab
--- NOTE | 2024-06-11 16:00 | PCPTNOTE ---
On 06/11/24, the student, [Nora Deluca] provided care and completed [facility] documentation on this patient. I have reviewed the student's documentation and agree with the findings.
[2024-06-11] MEDS: INDAPAMIDE 2.5 MG TABLET BY MOUTH (16:42)
[2024-06-12] MEDS: oxyCODONE/ACETAMINOPHEN (*CRX) 10-325 MG TABLET 1 TAB PO ×3 (01:56→17:15)
[2024-06-12 02:00] VITALS: BP 109/69; PULSE 60; RESP 20; TEMP 37.7; O2SAT 96
[2024-06-12 05:40] VITALS: BP 110/55; PULSE 57; RESP 18; TEMP 36.5; O2SAT 96
[2024-06-12] MEDS: ceFAZolin 2 GM/D5W 50 ML 2 GM/50 ML BAG IVPB (06:04)
[2024-06-12] MEDS: LEVOTHYROXINE SODIUM 50 MCG TABLET PO (06:04)
[2024-06-12 06:35] LABS: Basophils Absolute Auto 0.1 K/mm3 (0.0-0.1); Basophils Percent Auto 0.5 % (0.2-1.2); Eosinophils Percent Auto 0.2 % (0-4.4); Hematocrit 31.1 % (37.0-47.0); Hemoglobin 9.7 g/dL (12.0-15.0); Immature Granulocyte Absolute 0.06 K/mm3 (0.00-0.031); Immature Granulocyte Percent A 0.6 % (0-0.5); Lymphocytes Absolute Auto 2.01 K/mm3 (0.9-3.2); Lymphocytes Percent Auto 19.1 % (18.3-44.2); Mean Corpuscular HGB Conc 31.2 g/dl (32-36); Mean Corpuscular Hemoglobin 29.9 pg (26-34); Mean Platelet Volume 9.7 fl (7.4-10.4); Monocytes Percent Auto 9.9 % (2.6-8.5); Neutrophils Absolute Auto 7.4 K/mm3 (1.3-6.7); Neutrophils Percent Auto 69.7 % (45.5-73.1); Platelet Count Result 285 k/mm3 (150-375); Red Blood Count 3.24 M/mm3 (4.2-5.4); Red Cell Distribution Width 12.4 % (11.5-14.5); White Blood Count 10.5 K/mm3 (4.5-10.0)
[2024-06-12 06:51] LABS: Anion Gap 9 mmol/L (4-12); Blood Urea Nitrogen 23 mg/dL (7-17); Calcium 8.2 mg/dL (8.4-10.2); Carbon Dioxide 25 mmol/L (22-30); Chloride 103 mmol/L (98-107); Estimated CRCL calculation 41 ml/min; Estimated Glomerular Filt Rate 53; Glucose 97 mg/dL (65-110); Sodium 137 mmol/L (137-145)
--- NOTE | 2024-06-12 08:01 | PCPTNOTE ---
Attempted to see aptient for PT, however patient refused due to wanting to eat breakfast first.
[2024-06-12] MEDS: SENNA/DOCUSATE SODIUM TABLET 2 TAB PO (08:33)
[2024-06-12] MEDS: ASPIRIN 325 MG ENTERIC TABLET PO (08:33)
[2024-06-12] MEDS: polyethylene glycoL 3350 17 GM POWD.PACK PO (08:33)
[2024-06-12] MEDS: INDAPAMIDE 2.5 MG TABLET BY MOUTH (08:34)
[2024-06-12] MEDS: FAMOTIDINE 20 MG TABLET PO (08:34)
[2024-06-12] MEDS: ATORVASTATIN 20 MG TABLET PO (08:34)
[2024-06-12] MEDS: CELECOXIB 200 MG CAPSULE PO (08:34)
[2024-06-12] MEDS: lisinopriL 20 MG TABLET PO (08:34)
[2024-06-12 09:40] VITALS: BP 118/62; PULSE 73; RESP 16; TEMP 36.4; O2SAT 98
[2024-06-12 10:02] VITALS: O2SAT 93
[2024-06-12 13:40] VITALS: BP 117/58; PULSE 67; RESP 20; TEMP 36.9; O2SAT 96
== END 2024-06-12 17:35 | disposition home health service (06) ==
LOC: ANH3MEDSUR 12:32 → ANHSURGERY 06-12 08:27 → ANH3MEDSUR 06-12 08:34
PROVIDERS: PCP Family Medicine; Visit Provider Orthopaedic Surgery
PROC: (CPT 27130; principal; 2024-06-11 07:30)
DX: M16.12 Unilateral primary osteoarthritis, left hip (principal); I10 Essential (primary) hypertension; E03.9 Hypothyroidism, unspecified; E78.00 Pure hypercholesterolemia, unspecified; M81.0 Age-related osteoporosis without current pathological fracture; E66.9 Obesity, unspecified; Z68.38 Body mass index [BMI] 38.0-38.9, adult; Z98.890 Other specified postprocedural states; Z98.51 Tubal ligation status; Z80.1 Family history of malignant neoplasm of trachea, bronchus and lung; Z80.41 Family history of malignant neoplasm of ovary; Z80.8 Family history of malignant neoplasm of other organs or systems
CPT/HCPCS: 27130; 36415; 73501; 80048; 85025; 94640; 97110; 97116; 97161; 97165; 97530; 97535; A9270; C1776; J0171; J0330; J0690; J1100; J1170; J1885; J2250; J2270; J2405; J2704; J2795; J3010; J3370; J7120

== ENCOUNTER 2024-08-01 10:15 | Outpatient (RCR) | payer MEDICARE, MEDICAID, SELFPAY ==
--- NOTE | 2024-07-03 12:02 | OPREHPOC ---
Outpatient Therapy Plan of Care This is a Multidisciplinary Plan of Care that may contain components documented by all disciplines (PT, OT, and ST.) PT Problem 1 PT Problem #1 Knowledge Deficit PT Goal 1 Goal / Goal Update 1. Patient will perform independent HEP Target Visit 3 PT Problem 2 PT Problem #2 Impaired Strength PT Goal 1 Goal / Goal Update 1. L hip 4+/5 in all planes to improve function at home Target Visit 8 PT Problem 3 PT Problem #3 Impaired Functional ADLs PT Goal 1 Goal / Goal Update 1. Patient will navigate stairs reciprocally without pain 2. 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 Patient will ambulate at least 350 feet on the 2 minute walk test without major gait deviations Target Visit 8
--- NOTE | 2024-07-03 12:02 | PTOPEVAL1 ---
Assessment and note entered by Faiza Beverly DPT Evaluation Information Assessment Status Evaluation Diagnosis z96.649 ICD-10 Condition Codes (PT) Pain in left hip M25.552,Weakness R53.1 Subjective Information Pt had L JOSH on 06/11/24 and had home health until last Monday when she was discharged. No pain in the last week. Using a straight cane all the time right now but states she has walked without it. Pt states she has been able to do laundry, dishes, sweeping. Has not done much heavy lifting. Independent with dressing, bathing, and driving. 5 stairs to get in from the garage, none inside. Still puts both feet on each step. 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 Returns to MD in 3 months. Patient goal: get better Reported Pain Level Pain Score 0: Self Report Assessment PT Clinical Summary The patient is presenting to skilled therapy s/p L JOSH on 06/11/24. She presents with decreased LE strength, decreased balance, and gait impairments which are contributing to her difficulty performing normal activities including yard work and navigating stairs reciprocally. She will benefit from therapy to address these impairments in order to restore full function. Plan of Care Interventions Gait Training,Hot Pack/Cold Pack,Manual Therapy, Neuro Re-education,Patient/Caregiver Education, Therapeutic Activities,Therapeutic Exercise PT Services Indicated Yes Treatment Frequency and 1-2 times a week for 4-8 visits Duration These treatments will address the objective and functional deficits as defined above. The patient will be advanced safely and appropriately in order for the patient to progress towards his/her prior level of function. Additional exercises will be introduced and as well as a comprehensive home exercise program upon discharge, if needed, ?to ensure carryover of functional gains achieved in the clinic. This treatment plan has been reviewed and agreement upon by the patient.
--- NOTE | 2024-08-01 10:41 | PTOPDC ---
Assessment and note entered by Georgia Romeo, PT Evaluation Information Assessment Status Discharge Diagnosis z96.649 ICD-10 Condition Codes (PT) Pain in left hip M25.552,Weakness R53.1 Subjective Information Steps: going down will go down normal, going up goes normal unless is evening and is tired. Pt states was able to mow yesterday by going up on the strong side and was able to do fine. Doesn't have any pain in the left hip, but has right hip discomfort thinks is sciatica. States is going to primary next week and will talk about that. Reported Pain Level Pain Score 0: Self Report Assessment PT Clinical Summary Pt has attended therapy consistently for her L total hip replacement. She is independent in her home program, reports no pain in her left hip, shows great mobiltiy and ambulation skills without assisstive device, ability to navigate stairs appropriately without issue. Her strength has improved to 4/5 globally but has not reached the 4 +/5 ranges. She verbalizes understanding of her precautions, his highly functional and safe with minimal deficits. Thus she is being discharged from therapy at this time due to completion of plan of care. Plan of Care PT Services Indicated No
== END 2024-08-01 14:38 | disposition home or self-care (01) ==
LOC: ANHGOSHPT 10:15
PROVIDERS: PCP Family Medicine; Visit Provider Orthopaedic Surgery
DX: M25.552 Pain in left hip (principal); R53.1 Weakness; Z96.649 Presence of unspecified artificial hip joint
CPT/HCPCS: 97110; 97112; 97140; 97161; 97530; 97750

== ENCOUNTER 2025-03-31 09:11 | Emergency (ER) | payer MEDICARE, MEDICAID, SELFPAY ==
[2025-03-31 09:18] VITALS: BP 160/76; PULSE 63; RESP 16; TEMP 36.4; O2SAT 98
--- NOTE | 2025-03-31 09:33 | ED_ITS ---
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 Patient did have leather gloves on, but believes she may have touched her chest and face. She describes her rash as itching and burning. She has tried calamine lotion and Benadryl with little relief. Related Data Home Medications ?Medication ?Instructions ?Recorded ?Confirmed ?Last Taken ?Type acetaminophen 500 mg tablet 1,500 mg PO BID PRN Pain 05/30/24 02/14/25 Unknown History (Acetaminophen Extra Strength) calcium carb-ergocalciferol (vit 1 tablet PO HS 05/30/24 02/14/25 06/08/24 History D2) 600 mg calcium-200 unit tablet Allergies Allergy/AdvReac Type Severity Reaction Status Date / Time No Known Allergies Allergy Verified 03/31/25 09:16 Review of Systems Review of Systems: CONSTITUTIONAL: Denies body aches, fever, chills, or sweats. EYES: Denies visual changes, redness, or discharge. ENT: Denies rhinorrhea, congestion, sore throat, or otalgia. CARDIOVASCULAR: Denies chest pain, palpitations, or edema. RESPIRATORY: Denies cough or dyspnea. GASTROINTESTINAL: Denies abdominal pain, nausea, vomiting, or diarrhea. GENITOURINARY: Denies dysuria or hematuria. SKIN: + rash. MUSCULOSKELETAL: Denies back pain, joint pain, or myalgia. NEUROLOGIC: Denies headache, numbness, tingling, or weakness. PSYCH: Denies depression or anxiety. [facility] Past Medical History Medical History Colon cancer screening Hypercholesterolemia Osteoporosis Hypothyroidism Hypertension Surgical History Surgical History S/P total hip arthroplasty LT JOSH 06/11/24 History of tubal ligation 1971 History of appendectomy 1971 Hx of tonsillectomy age 27 History of cataract surgery 2018 History of detached retina repair right -2017 Family History Family History Father Family history of lung cancer Mother Family history of malignant neoplasm of ovary Mother Hypertension Family history of malignant neoplasm of ovary Sibling Hypertension Family history of diabetes mellitus in first degree relative Family history of malignant melanoma Father Family history of lung cancer Other Diabetes mellitus Social History Social History Smoking status: Never smoker Second hand tobacco smoke exposure: No Additional smoking assessment comments: smoke around pt in the past-30-40 years ago Alcohol intake: never Alcohol use details: consumes about 1 glass of wine yearly Substance use: never Substance use type: does not use Do You Feel Safe in your Home?: Yes Lack of Transportation: No Lack of Food: Never True Current Housing: I Have Housing Concerned About Future Housing: No Difficulty Paying Gas/Electric Bills: No Difficulty Paying for Meds: No Currently Unemployed: No Education: Decline to Answer Difficulty w/ Childcare or Family Care: No Living arrangements: alone Occupation/Education: retired 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 Please see nursing chart for further information. There is no relevant family history pertinent to the presenting complaint Exam Narrative: GENERAL: Well-appearing, well-nourished, and in no acute distress. HEAD: Normocephalic, atraumatic. EYES: EOMI. No redness or drainage. Conjunctivae normal. ENT: Mucous membranes pink and moist. NECK: Normal AROM. CHEST: No respiratory distress. EXTREMITIES: Normal range of motion. No edema. SKIN: Warm, dry,. Capillary refill normal. Normal skin turgor. Erythematous papular rash in patches to the upper chest, left zoroastrian, and left ear area. No vesicles, drainage, induration, or signs of bacterial infection. NEURO: No focal deficits. Alert and oriented x3. Gait steady. PSYCH: Normal affect. No signs of depression or anxiety. Course Course Level of Care: Express Care Visit Vital Signs Vital signs: Vital Signs Temperature 97.5 F L 03/31/25 09:18 Pulse Rate 63 03/31/25 09:18 Respiratory Rate 16 03/31/25 09:18 Blood Pressure 160/76 H 03/31/25 09:18 Pulse Oximetry 98 03/31/25 09:18 Temperature 97.5 F L 03/31/25 09:18 Pulse Rate 63 03/31/25 09:18 Respiratory Rate 16 03/31/25 09:18 Blood Pressure 160/76 H 03/31/25 09:18 Pulse Oximetry 98 03/31/25 09:18 Reviewed MDM - Skin/Abscess/Foreign Bdy MDM Narrative Medical decision making narrative: Patient's rash is consistent with contact dermatitis/poison abi dermatitis. Will treat with oral prednisone. Anticipatory guidance given. Differential Diagnosis Differential diagnosis: Likely abscess of skin or subcutaneous tissue, viral exanthem, dermatophytosis, urticaria, cellulitis, eczema, insect bites, impetigo and contact dermatitis Critical Care Time Critical Care Time Critical Care Time: No Discharge Plan Discharge Clinical Impression: Contact dermatitis Qualifiers: Contact dermatitis type: unspecified Patient Disposition: Home Condition: Stable Instructions: Contact Dermatitis (ED), Poison Abi (ED) Additional Instructions: Please take the prednisone as directed. You may use calamine lotion or Benadryl cream as well to help with the itch. If needed, you may also continue an oral antihistamine such as Zyrtec, Claritin, or Jessie. Follow-up with your PCP if symptoms persist. Your blood pressure was elevated above 120/80 today at Urgent Care. This puts you above the threshold for follow up. Please schedule a followup visit with your personal physician as soon as possible, for further evaluation and treatment. Even blood pressure exceeding 120/80 may indicate pre-hypertension. Patient Language: Taiwanese Prescriptions: New prednisone 10 mg tablet See Rx Instructions .ROUTE .COMPLEX Qty: 27 0RF Rx Instructions: 4 tabs daily x3 days,then 3 tabs daily x3 days,then 2 tabs daily x3 days No Action atorvastatin 20 mg tablet 20 mg PO DAILY Qty: 90 3RF indapamide 2.5 mg tablet See Rx Instructions .ROUTE .COMPLEX Qty: 90 3RF Dose Instruction: TAKE 1 TABLET BY MOUTH ONCE DAILY IN THE MORNING Rx Instructions: TAKE 1 TABLET BY MOUTH ONCE DAILY IN THE MORNING levothyroxine 50 mcg tablet 50 mcg PO DAILY Qty: 90 3RF Patient Comments: QAM Calcium + Vitamin D 600 mg calcium- 200 unit Tablet 1 tablet PO HS acetaminophen [Acetaminophen Extra Strength] 500 mg Tablet 1,500 mg PO BID PRN (Reason: Pain) Patient Comments: USUALLY TAKES 1500MG IN AM AND 1000MG AT NOON. docusate sodium 100 mg capsule 100 mg PO BID PRN (Reason: constipation) Qty: 30 0RF lisinopril 20 mg tablet 20 mg PO DAILY Qty: 90 3RF Patient Comments: QAM Follow-up/Referrals: PHYSICIAN,HOSTESS PARTY SALES REPRESENTATIVE [Primary Care Provider] - Time of Disposition: 09:40
== END 2025-03-31 09:50 | disposition home or self-care (01) ==
PROVIDERS: Emergency Provider Nurse Practitioner
DX: L25.9 Unspecified contact dermatitis, unspecified cause (principal); I10 Essential (primary) hypertension; E03.9 Hypothyroidism, unspecified; E78.00 Pure hypercholesterolemia, unspecified; M81.0 Age-related osteoporosis without current pathological fracture; Z96.642 Presence of left artificial hip joint
CPT/HCPCS: 99213; G0463